=== PATIENT | female | born 1935 | race African-American/Black ===

== ENCOUNTER 2017-07-04 02:18 | Observation (INO) | payer OTHER ==
[~2017-07-04] VITALS: Ht 160 cm; Wt 46.3 kg
[2017-07-04 03:25] LABS: Basophils # (auto) 0 uL; Basophils % (auto) 0.1 % (0.0-2.0); Eosinophils # (auto) 0 uL; Hematocrit 46.5 % (36.0-46.0); Hemoglobin 15.6 g/dL (12.2-16.2); Lymphocytes # (auto) 0.7 uL; Lymphocytes % (auto) 4.9 % (10.0-50.0); Mean Corpuscular Hemoglobin 33.5 pg (28.0-32.0); Mean Corpuscular Hgb Conc. 33.5 g/dL (32.0-36.0); Monocytes # (auto) 1.1 uL; Monocytes % (auto) 8.2 % (0.0-12.0); Neutrophils % (auto) 86.8 % (37.0-80.0); Nucleated Red Blood Cells % 0.1 %; Platelet Count (auto) 242 10^3/uL (140-450); Red Blood Cells 4.65 10^6/uL (4.0-5.20); Red Cell Distribution Width 14.2 % (11.8-14.3); White Blood Cell 13.9 10^3/uL (4.4-10.8)
[2017-07-04 03:40] LABS: Albumin 3.6 g/dL (3.4-5.0); BUN/Creatinine Ratio 52.3; Calcium 9.5 mg/dL (8.5-10.1); Magnesium 2.7 mg/dL (1.6-2.6)
[2017-07-04] MEDS ORDERED: METOPROLOL TARTRATE 50 MG TAB PO ONE (03:45)
[2017-07-04] MEDS ORDERED: SODIUM CHLORIDE 0.9% 1,000 ML IV ONE (03:45)
[2017-07-04 03:57] LABS: Partial Thromboplastin Time 28.9 sec (22.64-33.71); Prothrombin Time 10.9 sec (9.37-12.3)
[2017-07-04 04:14] LABS: Bilirubin, Total 0.7 mg/dL (0.2-1.0); Total Protein 8.4 g/dL (6.4-8.2)
[2017-07-04 04:20] LABS: Potassium 4.3 mmol/L (3.5-5.1)
[2017-07-04] MEDS ORDERED: cefTRIAXone 1GM/10ml IVPUSH 10 ML IV ONE (05:30)
[2017-07-04 10:15] VITALS: BP 138/80
== END 2017-07-04 10:58 | disposition home or self-care (01) | DRG 194 ==
LOC: ER 02:26 → OVERFLOW 05:52 → ER 10:58
PROVIDERS: ADMIT Emergency Medicine; ATTEND Emergency Medicine
DX: J18.1 Lobar pneumonia, unspecified organism (principal); J44.0 Chronic obstructive pulmonary disease with (acute) lower respiratory infection; E86.0 Dehydration; J44.1 Chronic obstructive pulmonary disease with (acute) exacerbation; F03.90 Unspecified dementia, unspecified severity, without behavioral disturbance, psychotic disturbance, mood disturbance, and anxiety; I10 Essential (primary) hypertension
CPT/HCPCS: 36415; 36600; 71045; 80053; 82805; 83605; 83735; 83880; 84484; 85025; 85610; 85730; 87040; 87400; 93005; 96361; 96374; 99285; G0378; J7030